=== PATIENT | male | born 1950 | race Caucasian/White ===

== ENCOUNTER 2023-02-28 12:08 | Inpatient (IN) | payer MEDICARE, OTHER ==
[~2023-02-28] VITALS: Ht 172.7 cm; Wt 63.4 kg
[2023-02-28] MEDS ORDERED: cefTRIAXone 1GM/50ML D5W 50 ML IV ONE (13:00)
[2023-02-28] MEDS ORDERED: DexAMETHasone SOD PHOS 10MG/1ML VIAL INJ IV ONE (13:00)
[2023-02-28] MEDS ORDERED: AZITHROMYCIN 500MG/ 250ML 250 ML IV ONE (13:00)
[2023-02-28 13:06] LABS: Basophils # (auto) 0.1 10 ^3/uL (0-0.2); Basophils % (auto) 0.5 % (0.0-2.0); Eosinophils # (auto) 0.3 10 ^3/uL (0-0.8); Eosinophils % (auto) 1.4 % (0.0-7.0); Hematocrit 37.9 % (41.0-53.0); Hemoglobin 12.4 g/dL (13.5-17.5); Lymphocytes # (auto) 0.7 10 ^3/uL (0.4-5.4); Lymphocytes % (auto) 4.2 % (10.0-50.0); Mean Corpuscular Hemoglobin 29.2 pg (28.0-32.0); Mean Corpuscular Hgb Conc. 32.8 g/dL (32.0-36.0); Mean Corpuscular Volume 88.8 fL (80.0-100.0); Monocytes % (auto) 11.3 % (0.0-12.0); Neutrophils # (auto) 14.6 10 ^3/uL (1.6-8.6); Neutrophils % (auto) 82.6 % (37.0-80.0); Red Blood Cells 4.27 10^6/uL (4.5-5.90); Red Cell Distribution Width 14.6 % (11.8-14.3); White Blood Cell 17.7 10^3/uL (4.4-10.8)
[2023-02-28 13:22] LABS: Albumin 3.1 g/dL (3.4-5.0); Calcium 9.2 mg/dL (8.5-10.1); Potassium 4.6 mmol/L (3.5-5.1)
[2023-02-28 13:23] LABS: INR 1.09 (0.9-1.15); Partial Thromboplastin Time 27.6 SEC (24.5-34.5)
[2023-02-28 13:26] LABS: BUN/Creatinine Ratio 19.4 (10.0-20.0); Bilirubin, Total 1.4 mg/dL (0.2-1.0); Total Protein 7.4 g/dL (6.4-8.2)
[2023-02-28] MEDS ORDERED: LISI-275 PO (14:22)
[2023-02-28] MEDS ORDERED: ATOR40TA52 PO (14:22)
[2023-02-28] MEDS ORDERED: CARV3.1240 PO (14:22)
[2023-02-28 15:37] LABS: Magnesium 2.2 mg/dL (1.6-2.6)
[2023-02-28 16:06] LABS: Urine Bacteria NONE SEEN /hpf (None Seen); Urine Blood Negative /uL (Negative); Urine Mucus FEW (None Seen); Urine Specific Gravity 1.014 (1.001-1.035); Urine WBC 1 /hpf (0 - 3)
[2023-02-28] MEDS ORDERED: ONDANSETRON HCL 4 MG/2 ML VIAL IV PRN (22:00)
[2023-02-28] MEDS ORDERED: ACETAMINOPHEN 325 MG TAB PO PRN (22:00)
[2023-02-28 22:15] VITALS: BP 92/56
[2023-02-28] MEDS: ATORVASTATIN 20 MG TAB PO SCH (22:43)
[2023-02-28] MEDS: PANTOPRAZOLE 40 MG/10 ML VIAL INJ IV SCH (22:43)
[2023-02-28] MEDS: CARVEDILOL 3.125 MG TAB PO SCH (22:55)
[2023-03-01 01:51] LABS: Hematocrit 33.4 % (41.0-53.0); Hemoglobin 11.3 g/dL (13.5-17.5)
[2023-03-01] MEDS ORDERED: ALBUMIN 5% 250 ML IV ONE (03:30)
[2023-03-01 06:27] LABS: Basophils # (auto) 0 10 ^3/uL (0-0.2); Eosinophils # (auto) 0 10 ^3/uL (0-0.8); Hemoglobin 11.8 g/dL (13.5-17.5); Lymphocytes # (auto) 0.5 10 ^3/uL (0.4-5.4); Mean Corpuscular Hemoglobin 29.7 pg (28.0-32.0); Mean Corpuscular Hgb Conc. 33.6 g/dL (32.0-36.0); Mean Corpuscular Volume 88.3 fL (80.0-100.0); Monocytes # (auto) 0.4 10 ^3/uL (0-1.3); Monocytes % (auto) 5.2 % (0.0-12.0); Neutrophils # (auto) 7.2 10 ^3/uL (1.6-8.6); Neutrophils % (auto) 88.8 % (37.0-80.0); Red Blood Cells 3.97 10^6/uL (4.5-5.90); Red Cell Distribution Width 14.3 % (11.8-14.3); White Blood Cell 8.1 10^3/uL (4.4-10.8)
[2023-03-01 06:38] LABS: Albumin 2.7 g/dL (3.4-5.0); Calcium 8.8 mg/dL (8.5-10.1); Magnesium 2.1 mg/dL (1.6-2.6); Potassium 4.1 mmol/L (3.5-5.1)
[2023-03-01 06:40] LABS: Bilirubin, Total 0.5 mg/dL (0.2-1.0); Total Protein 7.3 g/dL (6.4-8.2)
[2023-03-01] MEDS: cefTRIAXone 1GM/50ML D5W 50 ML IV SCH (09:16)
[2023-03-01] MEDS: CARVEDILOL 3.125 MG TAB PO SCH ×2 (10:00→22:00)
[2023-03-01] MEDS ORDERED: ENOXAPARIN SOD 40 MG/0.4 ML SYRINGE SC SCH (10:00)
[2023-03-01] MEDS: CLOPIDOGREL BISULFATE 75 MG TAB PO SCH (10:22)
[2023-03-01] MEDS: LISINOPRIL 5 MG TAB PO SCH (10:22)
[2023-03-01] MEDS: AZITHROMYCIN 500MG/ 250ML 250 ML IV SCH (10:23)
[2023-03-01] MEDS: PANTOPRAZOLE 40 MG/10 ML VIAL INJ IV SCH (10:24)
[2023-03-01] MEDS ORDERED: IOHEXOL 300 MG/ML 100ML BOTTLE IJ ONE (14:32)
[2023-03-01 16:55] LABS: Basophils # (auto) 0 10 ^3/uL (0-0.2); Eosinophils # (auto) 0 10 ^3/uL (0-0.8); Eosinophils % (auto) 0.1 % (0.0-7.0); Hematocrit 35.3 % (41.0-53.0); Hemoglobin 11.8 g/dL (13.5-17.5); Lymphocytes # (auto) 0.8 10 ^3/uL (0.4-5.4); Lymphocytes % (auto) 5.8 % (10.0-50.0); Mean Corpuscular Hemoglobin 29.7 pg (28.0-32.0); Mean Corpuscular Hgb Conc. 33.5 g/dL (32.0-36.0); Mean Corpuscular Volume 88.7 fL (80.0-100.0); Monocytes # (auto) 1.2 10 ^3/uL (0-1.3); Monocytes % (auto) 8.3 % (0.0-12.0); Neutrophils % (auto) 85.8 % (37.0-80.0); Red Blood Cells 3.98 10^6/uL (4.5-5.90); Red Cell Distribution Width 14.1 % (11.8-14.3)
[2023-03-01 17:03] LABS: Potassium 4.2 mmol/L (3.5-5.1)
[2023-03-01] MEDS ORDERED: PANT40TA57 PO (18:13)
[2023-03-01] MEDS ORDERED: ALBU108A5 INH (18:13)
[2023-03-01] MEDS ORDERED: CLOP75TA70 PO (18:13)
[2023-03-01] MEDS ORDERED: ASPI-325 PO (18:13)
[2023-03-01] MEDS: ALBUTEROL SULF 2.5 MG/0.5ML(0.5%) NEB SOLN NEB PRN (19:56)
[2023-03-01 22:00] VITALS: BP 127/70
[2023-03-01] MEDS: ATORVASTATIN 20 MG TAB PO SCH (22:00)
[2023-03-02] VITALS (7 sets, daily range): BP systolic 70–129; BP diastolic 52–98
[2023-03-02] MEDS: LISINOPRIL 5 MG TAB PO SCH (10:00)
[2023-03-02] MEDS: CARVEDILOL 3.125 MG TAB PO SCH ×2 (10:00→21:32)
[2023-03-02] MEDS: CLOPIDOGREL BISULFATE 75 MG TAB PO SCH (10:06)
[2023-03-02] MEDS: cefTRIAXone 1GM/50ML D5W 50 ML IV SCH (10:06)
[2023-03-02] MEDS: AZITHROMYCIN 500MG/ 250ML 250 ML IV SCH (10:06)
[2023-03-02] MEDS ORDERED: DexAMETHasone SOD PHOS 10MG/1ML VIAL INJ IV ONE (11:15)
[2023-03-02] MEDS: ALBUTEROL SULF 2.5 MG/0.5ML(0.5%) NEB SOLN NEB PRN (15:00)
[2023-03-02] MEDS: AMPICILLIN & SULBACTAM SODIUM 3 GM in SODIUM CHL 0.9% 100 ML IV SCH (15:44)
[2023-03-02] MEDS ORDERED: LISINOPRIL 5 MG TAB PO ONE (16:00)
[2023-03-02] MEDS: ATORVASTATIN 20 MG TAB PO SCH (21:32)
[2023-03-02] MEDS: ALBUTEROL SULF 2.5 MG/0.5ML(0.5%) NEB SOLN NEB SCH (22:54)
[2023-03-02] MEDS: IPRATROPIUM BROM 0.5 MG/2.5ML INH SOL NEB SCH (22:54)
[2023-03-03] VITALS (7 sets, daily range): BP systolic 106–118; BP diastolic 62–72
[2023-03-03] MEDS: AMPICILLIN & SULBACTAM SODIUM 3 GM in SODIUM CHL 0.9% 100 ML IV SCH ×5 (00:18→23:37)
[2023-03-03] MEDS: IPRATROPIUM BROM 0.5 MG/2.5ML INH SOL NEB SCH ×6 (02:00→22:59)
[2023-03-03] MEDS: ALBUTEROL SULF 2.5 MG/0.5ML(0.5%) NEB SOLN NEB SCH ×6 (02:00→22:59)
[2023-03-03 06:48] LABS: Basophils # (auto) 0.1 10 ^3/uL (0-0.2); Basophils % (auto) 0.9 % (0.0-2.0); Eosinophils # (auto) 0.1 10 ^3/uL (0-0.8); Eosinophils % (auto) 0.9 % (0.0-7.0); Hematocrit 35.6 % (41.0-53.0); Lymphocytes # (auto) 0.8 10 ^3/uL (0.4-5.4); Mean Corpuscular Hemoglobin 30.6 pg (28.0-32.0); Mean Corpuscular Hgb Conc. 33.7 g/dL (32.0-36.0); Mean Corpuscular Volume 90.7 fL (80.0-100.0); Monocytes # (auto) 0.5 10 ^3/uL (0-1.3); Monocytes % (auto) 5.5 % (0.0-12.0); Neutrophils # (auto) 8.5 10 ^3/uL (1.6-8.6); Neutrophils % (auto) 84.7 % (37.0-80.0); Nucleated Red Blood Cells % 0.3 %; Red Blood Cells 3.93 10^6/uL (4.5-5.90); Red Cell Distribution Width 14.4 % (11.8-14.3); White Blood Cell 10.1 10^3/uL (4.4-10.8)
[2023-03-03 07:14] LABS: Potassium 4.5 mmol/L (3.5-5.1)
[2023-03-03] MEDS: DexAMETHasone SOD PHOS 10MG/1ML VIAL INJ IV SCH (09:07)
[2023-03-03] MEDS: CLOPIDOGREL BISULFATE 75 MG TAB PO SCH (09:07)
[2023-03-03] MEDS: CARVEDILOL 3.125 MG TAB PO SCH ×2 (09:09→22:04)
[2023-03-03 09:14] LABS: INR 1.05 (0.9-1.15)
[2023-03-03] MEDS: ASPirin 81 mg TAB PO SCH (11:52)
[2023-03-03] MEDS: Ensure Enlive Strawberry 8oz Bottle PO SCH (19:20)
[2023-03-03] MEDS: ATORVASTATIN 20 MG TAB PO SCH (22:03)
[2023-03-04] VITALS (7 sets, daily range): BP systolic 108–145; BP diastolic 60–79
[2023-03-04] MEDS: ALBUTEROL SULF 2.5 MG/0.5ML(0.5%) NEB SOLN NEB SCH ×6 (02:56→22:06)
[2023-03-04] MEDS: IPRATROPIUM BROM 0.5 MG/2.5ML INH SOL NEB SCH ×6 (02:57→22:06)
[2023-03-04] MEDS: AMPICILLIN & SULBACTAM SODIUM 3 GM in SODIUM CHL 0.9% 100 ML IV SCH ×4 (05:29→23:02)
[2023-03-04 05:45] LABS: Basophils # (auto) 0 10 ^3/uL (0-0.2); Basophils % (auto) 0.1 % (0.0-2.0); Eosinophils # (auto) 0 10 ^3/uL (0-0.8); Eosinophils % (auto) 0.1 % (0.0-7.0); Hematocrit 33.7 % (41.0-53.0); Hemoglobin 11.6 g/dL (13.5-17.5); Lymphocytes # (auto) 0.7 10 ^3/uL (0.4-5.4); Lymphocytes % (auto) 6.6 % (10.0-50.0); Mean Corpuscular Hemoglobin 29.8 pg (28.0-32.0); Mean Corpuscular Hgb Conc. 34.3 g/dL (32.0-36.0); Mean Corpuscular Volume 86.8 fL (80.0-100.0); Monocytes # (auto) 0.9 10 ^3/uL (0-1.3); Monocytes % (auto) 8.4 % (0.0-12.0); Neutrophils # (auto) 9.2 10 ^3/uL (1.6-8.6); Neutrophils % (auto) 84.8 % (37.0-80.0); Nucleated Red Blood Cells % 0.1 %; Red Blood Cells 3.88 10^6/uL (4.5-5.90); Red Cell Distribution Width 13.9 % (11.8-14.3); White Blood Cell 10.9 10^3/uL (4.4-10.8)
[2023-03-04 06:15] LABS: Albumin 2.8 g/dL (3.4-5.0); BUN/Creatinine Ratio 27.6 (10.0-20.0); Calcium 8.3 mg/dL (8.5-10.1); Magnesium 2.2 mg/dL (1.6-2.6)
[2023-03-04 06:18] LABS: Bilirubin, Total 0.4 mg/dL (0.2-1.0); Total Protein 6.8 g/dL (6.4-8.2)
[2023-03-04] MEDS: DexAMETHasone SOD PHOS 10MG/1ML VIAL INJ IV SCH (10:18)
[2023-03-04] MEDS: CLOPIDOGREL BISULFATE 75 MG TAB PO SCH (10:18)
[2023-03-04] MEDS: ASPirin 81 mg TAB PO SCH (10:18)
[2023-03-04] MEDS: CARVEDILOL 3.125 MG TAB PO SCH ×2 (10:18→22:06)
[2023-03-04] MEDS: Ensure Enlive Strawberry 8oz Bottle PO SCH ×3 (10:23→18:55)
[2023-03-04] MEDS: ATORVASTATIN 20 MG TAB PO SCH (22:05)
[2023-03-05] MEDS: ALBUTEROL SULF 2.5 MG/0.5ML(0.5%) NEB SOLN NEB SCH ×6 (02:00→22:50)
[2023-03-05] MEDS: IPRATROPIUM BROM 0.5 MG/2.5ML INH SOL NEB SCH ×6 (02:00→22:50)
[2023-03-05] MEDS: AMPICILLIN & SULBACTAM SODIUM 3 GM in SODIUM CHL 0.9% 100 ML IV SCH ×4 (04:47→22:52)
[2023-03-05 05:00] VITALS: BP 126/77
[2023-03-05 08:00] VITALS: BP 111/72
[2023-03-05 09:00] VITALS: BP 127/78
[2023-03-05] MEDS: Ensure Enlive Strawberry 8oz Bottle PO SCH ×3 (10:30→18:34)
[2023-03-05] MEDS: DexAMETHasone SOD PHOS 10MG/1ML VIAL INJ IV SCH (10:31)
[2023-03-05] MEDS: ASPirin 81 mg TAB PO SCH (10:32)
[2023-03-05] MEDS: CARVEDILOL 3.125 MG TAB PO SCH ×2 (10:33→21:28)
[2023-03-05] MEDS: CLOPIDOGREL BISULFATE 75 MG TAB PO SCH (10:33)
[2023-03-05 13:00] VITALS: BP 132/75
[2023-03-05 17:00] VITALS: BP 123/82
[2023-03-05] MEDS: ATORVASTATIN 20 MG TAB PO SCH (21:29)
[2023-03-05 22:00] VITALS: BP 120/68
[2023-03-06] MEDS: IPRATROPIUM BROM 0.5 MG/2.5ML INH SOL NEB SCH ×5 (02:00→18:49)
[2023-03-06] MEDS: ALBUTEROL SULF 2.5 MG/0.5ML(0.5%) NEB SOLN NEB SCH ×5 (02:00→18:49)
[2023-03-06] MEDS: AMPICILLIN & SULBACTAM SODIUM 3 GM in SODIUM CHL 0.9% 100 ML IV SCH ×3 (04:17→17:54)
[2023-03-06 05:00] VITALS: BP 136/86
[2023-03-06] MEDS: Ensure Enlive Strawberry 8oz Bottle PO SCH ×3 (08:00→18:57)
[2023-03-06 09:55] LABS: Basophils # (auto) 0.1 10 ^3/uL (0-0.2); Basophils % (auto) 0.3 % (0.0-2.0); Eosinophils # (auto) 0.2 10 ^3/uL (0-0.8); Eosinophils % (auto) 0.7 % (0.0-7.0); Hematocrit 36.5 % (41.0-53.0); Hemoglobin 12.1 g/dL (13.5-17.5); Lymphocytes % (auto) 4.3 % (10.0-50.0); Mean Corpuscular Hemoglobin 29.2 pg (28.0-32.0); Mean Corpuscular Hgb Conc. 33.2 g/dL (32.0-36.0); Mean Corpuscular Volume 88.1 fL (80.0-100.0); Monocytes # (auto) 1.4 10 ^3/uL (0-1.3); Monocytes % (auto) 6.5 % (0.0-12.0); Neutrophils # (auto) 19.6 10 ^3/uL (1.6-8.6); Neutrophils % (auto) 88.2 % (37.0-80.0); Red Blood Cells 4.15 10^6/uL (4.5-5.90); Red Cell Distribution Width 14.1 % (11.8-14.3); White Blood Cell 22.2 10^3/uL (4.4-10.8)
[2023-03-06] MEDS: DexAMETHasone SOD PHOS 10MG/1ML VIAL INJ IV SCH (10:21)
[2023-03-06] MEDS: ASPirin 81 mg TAB PO SCH (10:21)
[2023-03-06] MEDS: CLOPIDOGREL BISULFATE 75 MG TAB PO SCH (10:22)
[2023-03-06] MEDS: CARVEDILOL 3.125 MG TAB PO SCH (10:24)
[2023-03-06 10:26] LABS: Calcium 8.8 mg/dL (8.5-10.1); Magnesium 2.3 mg/dL (1.6-2.6); Potassium 3.9 mmol/L (3.5-5.1)
[2023-03-06 10:29] LABS: BUN/Creatinine Ratio 27.5 (10.0-20.0)
[2023-03-06 10:51] VITALS: BP 114/64
[2023-03-06 12:47] VITALS: BP 128/78
[2023-03-06] MEDS ORDERED: ALPRAZolam 0.25 MG TAB PO PRN (14:15)
[2023-03-06] MEDS ORDERED: AUG875T PO ×3 (14:57→18:46)
[2023-03-06] MEDS ORDERED: METH4PAK PO ×3 (14:57→18:46)
[2023-03-06 16:45] VITALS: BP 129/72
[2023-03-06 18:44] VITALS: BP 128/78
== END 2023-03-06 19:30 | disposition home or self-care (01) | DRG 193 ==
LOC: ER 12:08 → EDBD 12:08 → OVERFLOW 21:58 → WEST WING 03-01 16:38 → TELE-WESTW 03-03 10:36
PROVIDERS: ADMIT Nurse Practitioner; ATTEND Internal Medicine Geriatric Medicine
DX: J18.8 Other pneumonia, unspecified organism (principal); J96.21 Acute and chronic respiratory failure with hypoxia; R04.2 Hemoptysis; E44.1 Mild protein-calorie malnutrition; R65.10 Systemic inflammatory response syndrome (SIRS) of non-infectious origin without acute organ dysfunction; J43.9 Emphysema, unspecified; I11.0 Hypertensive heart disease with heart failure; I50.9 Heart failure, unspecified; D64.9 Anemia, unspecified; D72.829 Elevated white blood cell count, unspecified; Z20.822 Contact with and (suspected) exposure to COVID-19; K80.20 Calculus of gallbladder without cholecystitis without obstruction; I25.10 Atherosclerotic heart disease of native coronary artery without angina pectoris; Z68.21 Body mass index [BMI] 21.0-21.9, adult; Z79.82 Long term (current) use of aspirin; Z86.16 Personal history of COVID-19; Z87.01 Personal history of pneumonia (recurrent); Z95.5 Presence of coronary angioplasty implant and graft; Z99.81 Dependence on supplemental oxygen; Z87.891 Personal history of nicotine dependence
CPT/HCPCS: 36415; 71045; 71275; 80048; 80053; 80061; 81001; 82435; 82565; 82575; 82947; 83036; 83605; 83735; 83880; 84132; 84295; 84443; 84484; 84520; 85014; 85018; 85025; 85379; 85610; 85730; 87081; 87426; 87804; 93005; 93306; 94640; 96365; 96366; 96367; 96375; 99291; C9113; G0378; J0696; J1100